=== PATIENT | male | born 1970 | race Caucasian/White ===

== ENCOUNTER 2022-04-30 11:01 | Emergency (ER) | payer OTHER ==
[2022-04-30 13:06] LABS: BASOPHIL 0.3 % (0-2); EOSINOPHIL 0.8 % (0-5); HCT 46.7 % (42.0-52.0); HGB 16.1 g/dl (13.2-18.0); LYMPHOCYTE 10.5 % (15-48); MCH 32.1 pg (25.0-31.0); MCHC 34.5 g/dL (32.0-36.0); MCV 93.2 fL (78.0-100.0); MONOCYTE 5.3 % (0-12); MPV 9.2 fL (6.0-9.5); NEUTROPHIL 82.9 % (41-80); NRBC 0; PLT 287 K/uL (150-400); RBC 5.01 M/uL (4.70-6.00); RDW 12.8 % (11.5-14.0); WBC 9.2 K/uL (4.0-10.5)
[2022-04-30 13:12] LABS: INR 1.1 (0.9-1.2); PROTHROMBIN TIME 13.6 SECONDS (11.8-13.4); PTT 27.5 SECONDS (24.4-34.7)
[2022-04-30 13:29] LABS: ALBUMIN 3.6 g/dL (3.4-5.0); ALKALINE PHOSHATASE 88 U/L (46-116); ALT 73 U/L (16-63); AST 50 U/L (15-37); BILIRUBIN - TOTAL 0.7 mg/dL (0.2-1.0); BUN 11 mg/dL (7-18); BUN/CREAT RATIO (CALC) 8.7 RATIO; CHLORIDE 103 mmol/L (98-107); CO2 (BICARBONATE) 24 mmol/L (21-32); CREATININE 1.26 mg/dL (0.67-1.17); GLOBULIN (CALCULATION) 3.9 g/dL; GLUCOSE 158 mg/dL (74-106); MAGNESIUM 1.9 mg/dL (1.8-2.4); POTASSIUM 3.4 mmol/L (3.5-5.1); TOTAL PROTEIN 7.5 g/dL (6.4-8.2)
[2022-04-30 13:34] LABS: LACTIC ACID 3.4 mmol/L (0.4-1.9)
[2022-04-30 16:29] LABS: BILIRUBIN NEGATIVE (NEGATIVE); BLOOD NEGATIVE Ery/uL (NEGATIVE); CLARITY CLEAR (CLEAR); COLOR YELLOW (YELLOW); GLUCOSE (U) NORMAL (NORMAL); LEUKOCYTES NEGATIVE Leu/uL (NEGATIVE); NITRITE NEGATIVE (NEGATIVE); PROTEIN 1+ mg/dL (NEGATIVE); SPECIFIC GRAVITY 1.015 (1.001-1.030)
[2022-04-30 16:33] LABS: MARIJUANA (THC) NEGATIVE (NEGATIVE)
[2022-04-30 16:34] LABS: AMPHETAMINES NEGATIVE (NEGATIVE); BARBITURATES NEGATIVE (NEGATIVE); ECSTASY (MDMA) NEGATIVE (NEGATIVE); METHADONE NEGATIVE (NEGATIVE); OPIATES NEGATIVE (NEGATIVE); OXYCODONE NEGATIVE (NEGATIVE)
[2022-04-30 16:53] LABS: BACTERIA TRACE; SQUAMOUS EPITHELIAL CELLS RARE; URINARY WBC RARE
[2022-04-30] MEDS ORDERED: NORCO 5-325 TA1 EACH PO (18:26)
== END 2022-04-30 18:43 | disposition home or self-care (01) ==
LOC: FER 11:01
PROVIDERS: Emergency Medicine
DX: S02.2XXA Fracture of nasal bones, initial encounter for closed fracture (principal); S00.03XA Contusion of scalp, initial encounter; W19.XXXA Unspecified fall, initial encounter; Y92.89 Other specified places as the place of occurrence of the external cause; Y99.0 Civilian activity done for income or pay
CPT/HCPCS: 36415; 70450; 70486; 72125; 80053; 80305; 81001; 83605; 83735; 84443; 84484; 85025; 85610; 85730; 93005; G0480; J1170; J2405; J7030